=== PATIENT | female | born 1940 | race Caucasian/White ===

== ENCOUNTER 2019-07-06 06:59 | Emergency (ER) | payer MEDICARE, SELFPAY ==
[2019-07-06 07:02] VITALS: BP 121/91; PULSE 78; RESP 15; TEMP 36.7; O2SAT 96; BMI 33.9
--- NOTE | 2019-07-06 07:15 | ED.BACK ---
HPI - Back Pain/Injury General Chief Complaint: Back Pain/Injury Stated Complaint: Back Pain Time Seen by Provider: 07/06/19 07:03 Source: EMS Mode of arrival: EMS Limitations: no limitations History of Present Illness HPI Narrative: Patient is a 79-year-old female who has chronic back pain presenting with worsening back pain. She says that she traveled from [place] yesterday for the holiday she only brought to hydrocodone tablets with her. She thinks that the drive may have been too much. She took 2 hydrocodone tablets last evening. She now continues to have worsening back pain however she would like to drive home today. So she is not wanting anything sedated of. She is able to actually stand from the bed and transfer to a wheelchair without any help. Her recently passed in this is the holiday without him so she is also quite upset MD Complaint: back pain Location: lumbar spine Related Data Allergies Allergy/AdvReac Type Severity Reaction Status Date / Time aspirin Allergy Verified 07/06/19 07:22 lisinopril Allergy Verified 07/06/19 07:22 Review of Systems Review of Systems Narrative: GENERAL: Denies chills, fatigue, malaise, fever, sweats, travel HEENT: Denies sinus pain, ear pain, sore throat, difficulty swallowing, neck pain RESPIRATORY: Denies dyspnea, cough, wheezing, hemoptysis, sputum. CARDIOVASCULAR: Denies chest pain, palpitations, orthopnea, edema GASTROINTESTINAL: Denies nausea, vomiting, abdominal pain, diarrhea, constipation, melena. : Denies dysuria, frequency, incontinence, hematuria, urinary retention, flank pain. MUSCULOSKELETAL: See HPI SKIN: No rash, no erythema, no pruritus NEUROLOGIC: Denies weakness, dizziness, headache, numbness, change in speech, confusion PSYCHIATRIC: No concerning psychosocial issues. 12 point review of systems is negative except for those stated above and HPI Patient History Medical History Chronic back pain (Acute) Hypertension (Acute) Social History Smoking Status: Never smoker Substance Use Type: does not use Exam Initial Vital Signs Initial Vital Signs: Vital Signs Temperature 98.1 F 07/06/19 07:02 Pulse Rate 78 07/06/19 07:02 Respiratory Rate 15 07/06/19 07:02 Blood Pressure 121/91 H 07/06/19 07:02 Pulse Oximetry 96 07/06/19 07:02 GENERAL: Alert elderly female appears in pain HEENT: Head atraumatic,EOMI, pupils reactive, CARDIOVASCULAR: Regular rate and rhythm without murmurs, rubs or gallops. RESPIRATORY: Breath sounds equal bilaterally, no wheezes rales or rhonchi. ABDOMEN: Soft, nontender. Normoactive bowel sounds all 4 quadrants. No guarding or rebound. twister tender paper over lumbar spine EXTREMITIES: Normal range of motion, no clubbing or edema. Neurovascularly intact NEUROLOGICAL: Alert and oriented x4.Normal gait and speech. SKIN: Warm, dry, no laceration, no petechiae, no rashes or lesions. Course Orders Ordered: Discontinued Medications Ketorolac Tromethamine (Toradol) 30 mg IM NOW ONE Stop: 07/06/19 07:15 Last Admin: 07/06/19 07:25 Dose: 30 mg Documented by: KAMALJIT Vital Signs Vital signs: Vital Signs - 8 hr 07/06/19 07:02 07/06/19 08:27 Temperature 98.1 F Pulse Rate 78 71 Respiratory Rate 15 16 Blood Pressure 121/91 H Blood Pressure [Right Arm] 114/67 Pulse Oximetry 96 97 MDM - Back Pain/Injury MDM Narrative Medical decision making narrative: The patient is ambulatory to the restroom she is overall feeling much better after Toradol. She has good support here, and they will help get her back to [facility]. Discharge Plan Departure Patient Disposition: Home Clinical Impression: Acute exacerbation of chronic low back pain Discharge Date/Time: 07/06/19 08:30 Instructions: DI for Low Back Pain Activity Restrictions/Additional Instructions: *You have been diagnosed with Acute on chronic back pain *What to do: increase activity as tolerated recommend frequent stops walking while driving back *Continue to take medications as directed *Follow up with your primary care provider in 2-3 days *Return to ER if you should have increasing back pain leg weakness numbness to [or] any new, worsening or concerning symptoms
[2019-07-06] MEDS: KETOROLAC 60 MG/2 ML VIAL 30 MG IM (07:25)
[2019-07-06 08:27] VITALS: BP 114/67; PULSE 71; RESP 16; O2SAT 97
== END 2019-07-06 08:30 | disposition home or self-care (01) ==
PROVIDERS: Emergency Provider Emergency Medicine
DX: M54.5 Low back pain (principal)
CPT/HCPCS: 96372; 99282; 99283; J1885